=== PATIENT | male | born 1955 | race Caucasian/White ===

== ENCOUNTER 2021-10-17 14:37 | Emergency (ER) | payer OTHER, MEDICARE ==
[2021-10-17] MEDS ORDERED: Boostrix 0.5 ML (Tdap) VIAL ONE (15:37)
== END 2021-10-17 16:46 | disposition home or self-care (01) ==
LOC: BURERS 14:37
DX: S52.532A Colles' fracture of left radius, initial encounter for closed fracture (principal); S00.212A Abrasion of left eyelid and periocular area, initial encounter; J32.9 Chronic sinusitis, unspecified; F17.210 Nicotine dependence, cigarettes, uncomplicated; Z23 Encounter for immunization; W01.198A Fall on same level from slipping, tripping and stumbling with subsequent striking against other object, initial encounter; Y92.009 Unspecified place in unspecified non-institutional (private) residence as the place of occurrence of the external cause
CPT/HCPCS: 29125; 70450; 70486; 72125; 90471; 90715

== ENCOUNTER 2022-01-31 11:46 | Emergency (ER) | payer MEDICARE ==
[2022-01-31] MEDS ORDERED: Boostrix 0.5 ML (Tdap) VIAL (>/=7 yrs of age) ONE (11:53)
== END 2022-01-31 12:54 | disposition home or self-care (01) ==
LOC: BURERS 11:46
DX: S01.01XA Laceration without foreign body of scalp, initial encounter (principal); W19.XXXA Unspecified fall, initial encounter; F17.210 Nicotine dependence, cigarettes, uncomplicated; Z23 Encounter for immunization
CPT/HCPCS: 12001; 70450; 90471; 90715

== ENCOUNTER 2024-03-04 16:59 | Emergency (ER) | payer MEDICARE, OTHER | END 2024-03-04 18:33 | disposition home or self-care (01) | LOC: BURERS 16:59 | DX: S20.211A Contusion of right front wall of thorax, initial encounter (principal); S00.511A Abrasion of lip, initial encounter; F17.210 Nicotine dependence, cigarettes, uncomplicated; W05.0XXA Fall from non-moving wheelchair, initial encounter; Y93.89 Activity, other specified | CPT/HCPCS: 99283 ==